=== PATIENT | female | born 1955 | race Caucasian/White ===

== ENCOUNTER → 2016-08-09 | Outpatient (CLI) | payer BC ==
--- NOTE | 2016-08-09 14:07 | MAM ---
EXAM DESCRIPTION: MAMMO BREAST SCREENING BILATERAL CAD, images were reviewed with CAD technology, R2 computer-aided detection. CLINICAL HISTORY: [facility]. COMPARISON: 2013. FINDINGS: Routine views are obtained. Scattered glandular parenchymal pattern remains stable. No dominant mass, architectural distortion or clustered microcalcification.. IMPRESSION: Benign exam. BIRAD CATEGORY: 2 BENIGN RECOMMENDATIONS: FOLLOW-UP: Routine screening mammogram in one year. According to the [employer], yearly mammograms are recommended starting at age 40 and continuing as long as a woman is in good health. Any breast change noted on a breast self-exam should be reported promptly to the patient's healthcare provider. Breast MRI is recommended for women with an approximately 20-25% or greater lifetime risk of breast cancer, including women with a strong family history of breast or ovarian cancer and women who have been treated for Hodgkin's disease. Electronically signed by: Sofya Briceño 08/09/2016 14:06
== END ==
LOC: MAMMO 12:40
PROVIDERS: ATTEND Nurse Practitioner Acute Care
DX: Z12.31 Encounter for screening mammogram for malignant neoplasm of breast (principal)

== ENCOUNTER → 2017-08-10 | Outpatient (CLI) | payer BC, OTHER ==
--- NOTE | 2017-08-11 10:12 | MAM ---
EXAM DESCRIPTION: 3D Screening BILATERAL : Digital Mammography. CLINICAL HISTORY: 62 years Female SCREENING . No complaints. No family history of breast cancer. Postmenopausal. Currently on HRT. COMPARISON: 2-D digital screening bilateral studies 08/09/2016 and 08/06/2015. Report from prior examination also reviewed. TECHNIQUE: Bilateral CC and MLO projection full-field images, 3-D tomosynthesis digital mammographic technique. Also bilateral synthesized CC/ MLO full-field images. CAD not utilized. FINDINGS: The breast parenchymal density pattern is: Scattered areas of fibroglandular density. No skin thickening or nipple retraction small solitary microcalcifications bilaterally. No focal, stellate mass or density, focal asymmetry , and no suspicious microcalcifications bilaterally. Stable mammograms compared to prior study, taking into account differences in mammographic technique IMPRESSION: BI-RADS CATEGORY: 2 - BENIGN FINDINGS. FOLLOW UP: Routine digital bilateral screening, one year interval from July 2017. Written communication explaining the IMPRESSION and follow-up, will be mailed to the patient and referring health care provider. According to the [employer], yearly mammograms are recommended starting at age 40 and continuing as long as a woman is in good health. Any breast change noted on a breast self-exam should be reported promptly to the patient's healthcare provider. Breast MRI is recommended for women with an approximately 20-25% or greater lifetime risk of breast cancer, including women with a strong family history of breast or ovarian cancer and women who have been treated for Hodgkin's disease. A negative mammographic report should not delay tissue diagnosis in patients with significant clinical history or physical findings. Extremely dense breast tissue limits the sensitivity of digital mammography. Electronically signed by: Neal Murphy MD 08/11/2017 10:11 AM [facility]
== END | disposition home or self-care (01) ==
LOC: MAMMO 12:50
PROVIDERS: ATTEND Nurse Practitioner Acute Care
DX: Z12.31 Encounter for screening mammogram for malignant neoplasm of breast (principal)

== ENCOUNTER → 2017-11-22 | Outpatient (CLI) | payer OTHER ==
--- NOTE | 2017-11-23 11:07 | US ---
EXAM DESCRIPTION: Pelvis Transvaginal CLINICAL HISTORY: 62 years, Female, POST MENOPAUSAL BLEEDING COMPARISON: None. FINDINGS: Transvaginal and transabdominal pelvic ultrasound. The uterus measures 9.8 x 4.2 x 3 cm. Uterus appears retroflexed. Endometrium measures 8.3 mm in maximal thickness, best visualized transabdominally. A hypoechoic area in the posterior upper body and fundus of the uterus is measured 2.7 x 3.2 x 1.6 cm. Another slight bulge of the anterior right lateral fundal region may be a fibroid 1.8 x 1.9 x 1.3 cm. A larger mass along the posterior lower uterine segment and cervical region is thought to be an exophytic subserosal fibroid 3.9 x 4.8 x 4.2 cm. Right ovary measures 2.1 x 2 x 1 cm. Left ovary is not visualized transvaginally. Transabdominal images show a hypoechoic ovoid structure labeled left ovary which measures 2.1 x 1 x 2.1 cm. No internal follicles to confirm that this is actually an ovary. There is some color flow in the area. There is no adnexal mass or free fluid. IMPRESSION: Fibroid uterus. Normal size of the ovaries for age. Electronically signed by: Sergei Burger MD 11/23/2017 11:06 AM CDT
== END ==
LOC: US 13:40
PROVIDERS: ATTEND Obstetrics & Gynecology
DX: N95.0 Postmenopausal bleeding (principal)

== ENCOUNTER → 2019-05-17 | Outpatient (CLI) | payer OTHER ==
--- NOTE | 2019-05-20 17:32 | MAM ---
EXAM DESCRIPTION: 3D Screening BILATERAL : Digital Mammography. CLINICAL HISTORY: 63 years Female SCREENING . No complaints. No personal history of breast cancer. Remote family history of breast cancer. Menarche age 11. Childbirth. Postmenopausal less than 5 years. HRT less than 5 years ago. Lifetime risk of developing breast cancer (Tyrer-Cuzick model)(%): 5.8. COMPARISON: Bilateral screening digital breast tomosynthesis 10 August 2017. TECHNIQUE: Bilateral CC and MLO projection full-field images, digital tomosynthesis mammographic technique. Bilateral digital 2-D full-field MLO images. CAD not available for tomosynthesis or 2-D images. FINDINGS: The breast parenchymal density pattern is: Scattered areas of fibroglandular density. No skin thickening or nipple retraction. Bilateral axillary lymph nodes. Bilateral solitary microcalcifications. Bilateral upper outer quadrant focal asymmetry. Large coarse calcification anterior right breast stable.. No new focal, stellate mass or density, focal asymmetry , and no suspicious microcalcifications bilaterally. Stable mammograms compared to prior study. IMPRESSION: Benign exam. BIRAD CATEGORY: 2 BENIGN FINDINGS. RECOMMENDATIONS: FOLLOW UP: Routine digital bilateral mammographic screening, one year interval from April 2019. Written communication explaining the IMPRESSION and follow-up, will be mailed to the patient and referring health care provider. According to the [employer], yearly mammograms are recommended starting at age 40 and continuing as long as a woman is in good health. Any breast change noted on a breast self-exam should be reported promptly to the patient's healthcare provider. Breast MRI is recommended for women with an approximately 20-25% or greater lifetime risk of breast cancer, including women with a strong family history of breast or ovarian cancer and women who have been treated for Hodgkin's disease. A negative mammographic report should not delay tissue diagnosis in patients with significant clinical history or physical findings. Extremely dense breast tissue limits the sensitivity of digital mammography. Electronically signed by: Neal Murphy MD 05/20/2019 5:30 PM CDT
== END ==
LOC: MAMMO 08:03
PROVIDERS: ATTEND Family Medicine
DX: Z12.31 Encounter for screening mammogram for malignant neoplasm of breast (principal)

== ENCOUNTER 2020-04-22 15:27 | Observation (INO) | payer MEDICARE, OTHER ==
[~2020-04-22 15:27] MED LIST: DEXAMETHASONE INJ 10 MG/ML VIAL ONE; LIDOCAINE 1% 10 ML VIAL INJ ONE; MAGNESIUM SULFATE INJ 1 GM/2 ML VIAL ONE; PROPOFOL 200 MG/20 ML VIAL IV ONE; ePHEDrine SULF 50 MG/ML ONE
--- NOTE | 2020-04-22 15:28 | HP ---
SUPERVISING PHYSICIAN: Xander Arroyo M.D. CHIEF COMPLAINT: Abdominal pain. HISTORY OF PRESENT ILLNESS: Ms. Quinteros is a 64 year-old female patient with no significant past medical history. She does have a history of chronic abdominal pain since mid January of this year. She first noted she was having some abnormal stools and felt bloated all the time. On March 23, she actually went to the Emergency Department in [place] and had a CT scan. Nothing was actually done. She was sent on to go see a GI specialist in [place]. She saw Dr. Back at the [facility] by teleconference this past . He basically scheduled her just for a colonoscopy. He told her to eat small boluses of food but never really gave her a diagnosis. She notes that she continues to have abdominal pain. At times, it is up to a 10 on the pain scale of 0 to 10 with a lot of belching. Yesterday she ate a banana and actually had some emesis associated with this with associated epigastric pain that she notes radiates to her back and across her upper abdominal region of both right upper and left quadrants. she was in the Emergency Department in [place] due to the symptoms and seen at [facility]. She was given pain medications and sent home, and told to followup with her GI specialist for colonoscopy in May. Yesterday she called Dr. Pizarro noting that her pain was severe. She was then admitted to the [facility]. A CT was done. Based off the CT findings, Dr. Farooq was consulted this morning and saw the patient. He noted that the patient was actually having issues secondary to a small bowel obstruction and requested the patient be transferred and admitted to the hospital here for a planned surgical procedure for small bowel obstruction in the morning. She was admitted directly to the hospital at Dr. Farooq's request. At time of admission, the patient was having some abdomen pains but was otherwise stable. PAST MEDICAL HISTORY: No significant medical history listed. PAST SURGICAL HISTORY: 1. Two sections, one in 1978 and one in 1980. PRESCRIPTION MEDICATIONS: [id number] medications - none listed. ALLERGIES: NO KNOWN DRUG ALLERGIES. FAMILY HISTORY: Mother at age 88 from advanced age. Father at age 89 due to advanced age. She has 1 brother who is 69 who has issues with cardiovascular disease. She has another brother who is healthy. She has a younger sister who is healthy, an older sister who is secondary to an MVA. SOCIAL HISTORY: She denies any alcohol, tobacco or illicit drug use. She works in [employer] with her at [employer]. She currently resides in [place], [place]. REVIEW OF SYSTEMS: CONSTITUTIONAL: Denies any fevers or chills. Reports some general malaise but no unintentional weight loss. HEENT: Denies any headaches, vision changes, sore throat or nasal congestion. RESPIRATORY: Denies any coughing, wheezing or shortness of breath. CARDIOVASCULAR: Denies any chest pains, palpitations or syncopal episodes. GASTROINTESTINAL: As noted in History of Present Illness, ongoing right upper quadrant and epigastric pain with associated emesis. GENITOURINARY: Denies any dysuria, hematuria, polyuria. MUSCULOSKELETAL: Denies any joint swelling or arthralgias. NEUROLOGIC: Denies any ataxia, seizures, migraines, vision changes, syncopal episodes, paresthesias or other focal deficits. SKIN: Denies any lesions, rashes, moles or unexplained changes. HEMATOLOGIC: Denies unexplained bleeding, bruising or transfusion reactions. PHYSICAL EXAMINATION: VITAL SIGNS: Temperature 98.7, pulse 18, respirations 98, blood pressure was pending. Admission weight was 73.5 kg. GENERAL: The patient does not look to be in any distress, although she does look a little uncomfortable and is not feeling well. She is alert. HEENT: Tympanic membranes clear bilaterally. Oropharynx is pink, moist without any lesions. NECK: Supple, nontender with full range of motion. No jugular venous distention noted. CHEST: Lungs are clear to auscultation bilaterally without any rhonchi, wheezes or rales. HEART: Regular rate and rhythm without any appreciable murmurs, gallops, or rubs. ABDOMEN: Soft with noted tenderness on palpation to the epigastric and both right upper and left quadrants. No rebound tenderness. No peritoneal signs. Bowel sounds are hypoactive. BACK: Without any CVA or vertebral tenderness. RECTAL: Exam was deferred. EXTREMITIES: Without any clubbing, cyanosis or edema. NEUROLOGIC: She is alert and oriented times three. Cranial nerves II-XII are grossly intact. Facial features are symmetrical. Extraocular movements are within normal limits. There is no nystagmus noted. SKIN: Warm, pink and dry. LABORATORY: White count 4,000, hemoglobin 12.8, hematocrit 30.0, platelet count 220,000. Differential did show a left shift. Coagulation studies showed normal PT and PTT. Chemistries showed normal electrolytes with a BUN of 9, creatinine 0.64, glucose 77, lactic acid 1.1, calcium normal at 8.4. Liver functions were all within normal limits. Amylase and lipase were both normal. Troponin less than 0.02. Urinalysis did show a trace of lysed blood, small amount of bilirubin, trace leukocyte esterase. Microscopic revealed 3 to 5 RBCs, 20 to 30 WBCs, 3 to 5 epithelials with 2+ bacteria. MICROBIOLOGY: Urine culture is pending. RADIOLOGY: Two view chest x-ray per radiology interpretation showed no acute findings. Imaging studies included a CT scan done prior to admission at [facility] per radiology interpretation of the exam on 04/21/20 shows findings suggestive of early small bowel obstruction with likely transition point in the right lower quadrant. There is note of small amount of free fluid but no free air or abscess. 12-lead EKG showed sinus bradycardia with no ST or T wave changes.noted. No comparisons available at time of admission. ASSESSMENT: 1. Small bowel obstruction as noted on CT scan with a transition point in the right lower quadrant. 2. Abdominal pain secondary to #1. 3. Lower urinary tract infection with cultures pending. PLAN: Ms. Quinteros is going to be admitted at the request of Dr. Farooq in anticipation of a surgical procedure in the morning to help resolve the small bowel obstruction. Dr. Farooq's consultation is pending. Will hold off on Lovenox tonight awaiting procedure in the morning. She will be NPO overnight. She will be on IV fluids D5 half normal saline with 20 of potassium at 125. She will be on IV pain management with morphine as needed, Zofran for any nausea or vomiting. Pending culture results start on Rocephin. I anticipate her length of stay to be 2 to 3 days pending surgery tomorrow. Until she can transition to outpatient management will continue to monitor and treat as needed. #[id number] [facility]
[2020-04-22] MEDS ORDERED: SODIUM CHLORIDE 0.9% (FLUSH) 10 ML SYG IV PRN (15:34)
[2020-04-22] MEDS ORDERED: IV SET AND CAP CHANGE INJ INJ SCH (16:00)
--- NOTE | 2020-04-22 16:14 | RAD ---
EXAM: XR Chest, 2 Views CLINICAL HISTORY: abdominal pain/ preop SBO TECHNIQUE: Frontal and lateral views of the chest. COMPARISON: 01/02/2009 FINDINGS: Lungs: No consolidation. Normal pulmonary vascular pattern. Pleural space: No abnormality noted. No pneumothorax. Heart: No abnormality noted. No cardiomegaly. Mediastinum: No abnormality noted. Bones/joints: No abnormality noted. Upper abdomen: No free intraperitoneal air noted. IMPRESSION: No acute findings in the chest. Electronically signed by: Poornima Dick MD 04/22/2020 4:12 PM CDT
[2020-04-22] MEDS: PANTOPRAZOLE SODIUM IV 40 MG VIAL IV SCH (16:16)
[2020-04-22] MEDS: KCL 20MEQ/D5 1/2NS 1,000 ML IVS PRN (17:18)
[2020-04-22] MEDS ORDERED: SODIUM CHL 0.9% 50ML MIN-BAG+ 50 ML IVPB ONE (19:28)
[2020-04-22] MEDS ORDERED: cefTRIAXone SODIUM 1 GM VIAL ONE (19:28)
[2020-04-22] MEDS: cefTRIAXone SODIUM 1 GM in SODIUM CHL 0.9% 50ML MIN-BAG+ 50 ML IVPB SCH (19:32)
[2020-04-23] MEDS: KCL 20MEQ/D5 1/2NS 1,000 ML IVS PRN ×3 (01:38→18:05)
[2020-04-23] MEDS ORDERED: SODIUM CHL 0.9% 100ML MINI-BAG 100 ML IVPB ONE (07:53)
[2020-04-23] MEDS ORDERED: SODIUM CHLORIDE 0.9% 1000ML 1,000 ML ONE (07:58)
[2020-04-23] MEDS ORDERED: HYDROmorphone HCL INJ 2 MG/ML VIAL ONE (08:09)
[2020-04-23] MEDS ORDERED: SUGAMMADEX SODIUM 200 MG/2 ML VIAL IV ONE (08:09)
[2020-04-23] MEDS ORDERED: MIDAZOLAM INJ 2 MG/2 ML VIAL ONE (08:09)
[2020-04-23] MEDS ORDERED: KETAMINE HCL 100 MG/ML VIAL ONE (08:09)
[2020-04-23] MEDS ORDERED: ROCURONIUM BROMIDE 10 MG/ML VIAL ONE (08:10)
[2020-04-23] MEDS ORDERED: FAMOTIDINE INJ 10 MG/ML VIAL IV ONE (08:10)
[2020-04-23] MEDS ORDERED: BUPIVACAINE 0.5% W/EPI 30 ML VIAL INJ ONE ×2 (08:49→09:10)
[2020-04-23] MEDS ORDERED: ELECTROLYTE-A 1,000 ML IVS ONE (08:51)
--- NOTE | 2020-04-23 10:25 | OP ---
DATE OF PROCEDURE: 04/23/20 PREOPERATIVE DIAGNOSIS: 1. Small bowel obstruction. POSTOPERATIVE DIAGNOSIS: 1. No evidence of small bowel obstruction. PROCEDURE: 1. Exploratory laparoscopy with adhesiolysis. SURGEON: Fito Farooq MD CUSHION FILLER: Josep Ayala MD ANESTHESIA: General and local. FINDINGS: The transition point was still apparent in the proximal ileum, however, no obstructing lesion or adhesions were seen. There were adhesions of the omentum to the anterior abdominal wall and the fundus of the uterus. This did not appear to be involved. There was no evidence of internal hernias. The gallbladder, however, showed a lot of scarring consistent with probable chronic cholecystitis and could be a cause for some of her symptoms. COMPLICATIONS: None. ESTIMATED BLOOD LOSS: Minimal. CONDITION: Stable. PLAN: Admit. INDICATION: This is a 64-year-old woman who had been complaining of chronic intermittent abdominal pain, postprandial with nausea for at least two months. It is getting very progressive. She was scheduled to see GI and a CT scan a few weeks ago showed possible enteritis. However, she had increased symptoms two days ago and was admitted. Additional CT scan showed evidence of a transition point and a small bowel obstruction. I saw her in [place] and viewed the CT scan myself and agreed with those findings. There was also some fluid in the pelvis. She was brought here to [place] for surgery. PROCEDURE: General anesthesia was induced. She was prepped and draped in sterile fashion. 0.5% Marcaine with epinephrine was used at all incision sites. While maintaining upward traction, a lito was made near the base of the umbilicus. The Veress needle was introduced. There was free flow of fluid into the peritoneal cavity which was insufflated to an appropriate level with CO2 gas. The 5 mm trocar was placed followed by the camera. There was no evidence of bleeding or bowel injury. The patient was positioned. Two left lower quadrant ports were placed. We noticed the dilated proximal small bowel upon entering and went straight to these anterior adhesions of the omentum which were from the mid abdominal wall down to the fundus of the uterus. These were taken down and only mild oozing was controlled. There was no evidence of anterior wall hernia. The uterus was stuck to the anterior wall. The right ovary was stuck to the anterior wall, but no evidence of complications there. We then found the terminal ileum and ran the bowel retrograde. We found a transition point and examined it. There were no obvious lesions at this time, no hard evidence of an adhesive band that had been released. We continued to examine the small bowel all the way up until almost the ligament of Treitz and saw no lesions. We examined the omentum and there were no lesions. We went back down to that transition point and indeed there was some distal peristalsis, but at the transition, which we did take a photo of, there was no obvious obstructing lesion. We palpated it with the instrumentation and there was no evidence of intraluminal mass. We commented on gallbladder previously, so we looked at the gallbladder and indeed there were a lot of adhesions almost covering the entire anterior gallbladder wall. There was no obvious acute inflammation, but this could be an explanation for some of her symptoms. Otherwise, the liver, peritoneal surfaces, stomach and the colon that we easily saw were all normal. At this point, the abdomen was desufflated. The trocars were removed. The wounds were closed with Monocryl and dressing applied. She was awakened and taken to Recovery to be admitted. Reportedly, she has had an ultrasound recently and we will examine that. #[id number] cc: Dr. Neal GALVAN
[2020-04-23] MEDS: MORPHINE SULFATE INJ 10 MG/ML VIAL IV PRN ×3 (11:09→18:05)
--- NOTE | 2020-04-23 13:13 | PN ---
SUPERVISING PHYSICIAN: Horacio Arroyo MD DATE: 04/23/20 SUBJECTIVE: The patient is lying in bed. She is resting quietly. She has just returned from surgery where Dr. Fito Farooq did an exploratory laparoscopy with adhesiolysis. There were no intraoperative complications. Her is at the bedside. OBJECTIVE: VITAL SIGNS: Temperature 98.6, heart rate 61, blood pressure 99/64, respiratory rate 16, O2 saturation 97% on 2 liters nasal cannula. RESPIRATORY: Somewhat diminished at the bases with somewhat shallow respiration, but mostly clear to auscultation. CARDIAC: Regular rate and rhythm. NEUROLOGIC: She is lethargic. She opens her eyes and follows some simple commands. LABORATORY: Preliminary urine cultures show no growth after 24 hours. All other labs and films have been reviewed via the EMR. ASSESSMENT: 1. Small bowel obstruction as noted on CT scan with a transition point in the right lower quadrant. She was admitted for surgical intervention and is status post exploratory laparoscopy, postoperative day #0. 2. Abdominal pain secondary to #1. 3. Lower urinary tract infection with cultures pending. PLAN: We will continue present supportive care. I have re-started her on D5 half with 20 of K as previously ordered and we will continue with that until further orders by Dr. Farooq or until the patient starts eating. Operative issues will be per Dr. Farooq. We will need to address with him when he would like her Lovenox re-started. She will have Zofran for nausea and vomiting. She will continue Rocephin for urinary tract infection and we will monitor her cultures. We will continue to monitor the patient closely and follow as needed. #[id number] [facility]
[2020-04-23] MEDS: PANTOPRAZOLE SODIUM IV 40 MG VIAL IV SCH (15:54)
[2020-04-23] MEDS: cefTRIAXone SODIUM 1 GM in SODIUM CHL 0.9% 50ML MIN-BAG+ 50 ML IVPB SCH (19:12)
[2020-04-23] MEDS: ONDANSETRON INJ 4 MG/2 ML VIAL IV PRN (19:55)
[2020-04-23] MEDS ORDERED: PROMETHAZINE HCL INJ 12.5 MG in SODIUM CHLORIDE 0.9% 50ML 50 ML IVPB PRN (20:15)
[2020-04-23] MEDS ORDERED: SODIUM CHLORIDE 0.9% 50ML 50 ML ONE (20:17)
[2020-04-23] MEDS ORDERED: PROMETHAZINE HCL INJ 25 MG/ML VIAL ONE (20:17)
[2020-04-23] MEDS: KETOROLAC TROMETHAMINE INJ 30 MG/ML VIAL IV PRN (20:25)
[2020-04-24] MEDS: KETOROLAC TROMETHAMINE INJ 30 MG/ML VIAL IV PRN (05:51)
[2020-04-24] MEDS: ONDANSETRON INJ 4 MG/2 ML VIAL IV PRN (05:53)
[2020-04-24 16:30] VITALS: BP 112/64; TEMP 97.9; O2SAT 97
--- NOTE | 2020-04-26 12:12 | DS ---
SUPERVISING PHYSICIAN: Xander Arroyo M.D. DISCHARGE DIAGNOSIS: 1. Small bowel obstruction as noted on CT scan with a transition point in the right lower quadrant. She was admitted for surgical intervention and is status post exploratory laparoscopy, postoperative day #2. 2. Abdominal pain secondary to #1 that has been ongoing for about 3 months. 3. Urinary tract infection with cultures pending. HISTORY OF PRESENT ILLNESS: This is a 64 year-old female patient who has no significant medical history. She has a history of abdominal pain that has been going on for about 3 months. She first noted to have some abnormal stools with bloating at that time. She went to the Emergency Room in [place] on March 23. A CT scan was done and nothing was actually done. She was sent to a GI specialist in [place]. She saw Dr. Back at the [facility] by teleconference the past . He scheduled her for a colonoscopy but no other intervention. He told her to eat small boluses of food but never really gave her a diagnosis. She noted that she continued to have this abdominal pain and had difficulty eating. She also had some belching. She has had some emesis with the epigastric pain but that has been rare. The main area of discomfort is the right and left upper quadrants. She had been seen at [facility] in the Emergency Room in [place] on . She was given pain medications and sent home, and told her to followup with her GI specialist. She called Dr. Pizarro the day prior to admission and told them about the severity of her pain. She was admitted to the hospital in [place]. A CT was done and based on her findings, Dr. Farooq was consulted and he saw the patient in [place]. Initially thinking that this was a small bowel obstruction, he requested the patient be transferred and admitted here for planned surgical procedure for a small bowel obstruction on Monday. She was directly admitted to the hospital in stable condition. HOSPITAL COURSE: The patient went to surgery on Monday morning. She had an exploratory laparoscopy with adhesiolysis. There was no evidence of an small bowel obstruction. The gallbladder showed some scarring consistent with probable chronic cholecystitis that may be the cause of some of her symptoms. She had no intraoperative complications. Postoperatively, the patient was to have as HIDA scan which is scheduled for next Monday on 04/29/20 at 9:00 AM. She is to be NPO afterwards. She is tolerating a clear liquid diet and has had 1 meal of full liquids. Instructions were given at length for what she should eat. She will be discharged home today in stable condition. LABORATORY: Initial WBCs were 4,000 with followup of 8,000. The remainder of her CBCs are unremarkable. Electrolytes were basically within normal limits with the exception of calcium was slightly low at 8.3. Amylase was 22 on admission and 21 on the day of discharge. Lipase was stable at 31. She was positive for a urinary tract infection. Urinalysis showed a trace of urine blood, small amount of urine bilirubin and trace amount of urine leukocyte esterase, 3 to 5 urine RBCs, 20 to 30 urine WBCs and 2+ urine bacteria with moderate mucous. Urine culture is still pending. RADIOLOGY: CT is unavailable at this time. Chest x-ray shows no acute findings in the chest. DISCHARGE PLAN: The patient will be discharged home in stable condition. She is to continue her diet as instructed. All of her questions were answered. She is to increase her activity as tolerated. She is to followup with Dr. Farooq as instructed. She is to be scheduled for a HIDA scan as an outpatient on 04/29/20 at 9:00 AM. She is also to be NPO at midnight. In addition to her routine medications, she has also been sent home with 7 days of Cefdinir, some Promethazine, Tramadol and some Zofran. She is to return to the hospital or followup with Dr. Farooq if any problems or complications. Iona Sinclair was consulted and there are no conflicts on her narcotics profile. DISCHARGE MEDICATIONS: 1. Cefdinir. 2. Promethazine. 3. Zofran. 4. Tramadol. #[id number] [facility]
== END 2020-04-24 14:45 | disposition home or self-care (01) ==
LOC: INTOOBSV 15:27 → MS 15:27
PROVIDERS: ADMIT Nurse Practitioner Family; ATTEND Nurse Practitioner Acute Care
DX: K56.609 Unspecified intestinal obstruction, unspecified as to partial versus complete obstruction (principal); K66.0 Peritoneal adhesions (postprocedural) (postinfection); N39.0 Urinary tract infection, site not specified; B96.89 Other specified bacterial agents as the cause of diseases classified elsewhere; R11.2 Nausea with vomiting, unspecified; K21.9 Gastro-esophageal reflux disease without esophagitis; R00.1 Bradycardia, unspecified; Z88.6 Allergy status to analgesic agent
CPT/HCPCS: 49329; 00840; 96366 ×2; 96367; 96365; 96375 ×2; 96376 ×2; J0694; J0696 ×2; J1170; J1885 ×2; J2270 ×3; J2405 ×3; J2550; J3490; J7030; A4216 ×3; J3475; J1100; J2250; J7050 ×3; 80053 ×2; 87086; 36415 ×7; 82150 ×2; 81001; 85025 ×2; 83690 ×2; 83735; 85730; 85610; 84484; 83605; 71046; 94760 ×5; 93005 ×2; G0378

== ENCOUNTER → 2020-04-29 | Outpatient (CLI) | payer MEDICARE, OTHER ==
--- NOTE | 2020-04-29 13:50 | NM ---
EXAM DESCRIPTION: Hepatobiliar w/CCK: Nuclear Medicine. CLINICAL HISTORY: ABDOMINAL PAIN. Bloating and belching. COMPARISON: None. TECHNIQUE: Patient was given 8.4 mCi of technetium 99 M mebrofenin (Choletec) radiopharmaceutical IV. Anterior gamma camera images were obtained of the right upper quadrant at 5 minute intervals for one hour. The patient was then given 1.4 mcg CCK IV infusion over 30-minute interval. Gallbladder ejection fraction was evaluated by measuring change in radioactivity in the gallbladder, over 30 min interval. FINDINGS: Almost immediate visualization of the entire liver after administration of radiopharmaceutical. No focal abnormal regions of photopenia or increased activity. Timely visualization of intrahepatic ducts, extrahepatic ducts, and the gallbladder. After infusion of CCK was began, patient experienced mild nausea. 14% of the gallbladder activity decreased after 10 minutes. A percent activity decreased after 20 minutes, and 93% activity decreased at 30 minutes. IMPRESSION: 1. No intrahepatic or extrahepatic biliary obstruction. No gross hepatic lesions. 2. Gallbladder ejection fraction is 93% which is well above abnormal range (less than or equal to 35%). Electronically signed by: Neal Murphy MD 04/29/2020 1:49 PM CDT
== END ==
LOC: NM 09:24
PROVIDERS: ATTEND Surgery
DX: K82.9 Disease of gallbladder, unspecified (principal)
CPT/HCPCS: 78227; A9537

== ENCOUNTER 2020-05-01 05:37 | Day surgery (SDC) | payer MEDICARE, OTHER ==
[2020-05-01] MEDS ORDERED: LACTATED RINGERS 1,000 ML ONE (06:33)
[2020-05-01] MEDS ORDERED: PROPOFOL 200 MG/20 ML VIAL IV ONE (07:00)
[2020-05-01] MEDS ORDERED: LIDOCAINE 1% 10 ML VIAL INJ ONE (07:00)
[2020-05-01] MEDS ORDERED: fentaNYL CITRATE INJ 50 MCG/ML 2 ML AMP ONE (10:21)
[2020-05-01 11:24] VITALS: BP 81/43; TEMP 97.4; O2SAT 94
--- NOTE | 2020-05-01 11:56 | OP ---
DATE OF PROCEDURE: 05/01/20 PREOPERATIVE DIAGNOSIS: 1. Epigastric pain. 2. Chronic belching. 3. History of possible enteritis. POSTOPERATIVE DIAGNOSIS: 1. Epigastric pain. 2. Chronic belching. 3. History of possible enteritis. PROCEDURE: 1. Complete colonoscopy. 2. EGD with biopsy. SURGEON: Fito Farooq MD ANESTHESIA: General. FINDINGS: On the colonoscopy, all mucosal surfaces were normal. No polyps were seen. On endoscopy, some slight erythema in the proximal stomach as well as the antrum. The duodenum and pylorus were normal. No evidence of hiatal hernia. The esophagus appeared normal. COMPLICATIONS: None. SPECIMEN: Gastric fundus and antrum. PLAN: Discharge. INDICATION: This is a 64-year-old woman with at least 2 months now of increasing abdominal pain, postprandial as well as belching, some nausea and vomiting. She has been evaluated with a CT. Previous CT showed evidence of a transition point suspicious for bowel obstruction. Laparoscopy was performed and there was no mechanical obstruction, no intraabdominal adhesions. Her pain is primarily postprandial with almost any meal yet she belches frequently. Although the severity has increased in the last 2 months, slighter symptoms go back for a long period of time. Her ultrasound and HIDA scan have both been normal. We are here to examine with endoscopy. PROCEDURE: She was brought to the Operating Suite in lateral position. General anesthesia was induced. Bite block was in place. The endoscope was passed without difficulty into the stomach and into the third portion of the duodenum. Upon withdrawal, the duodenal surfaces were normal. The antrum appeared slightly reddened, but no ulcers. Biopsies were taken also for H. pylori. The proximal stomach also showed a couple of reddened areas. These were biopsied. Retroflexion revealed no significant hiatal hernia. There was very slight next to the scope, but no ulcers or other abnormalities. Upon withdrawal, the mucosal surfaces of the esophagus appeared normal. On colonoscopy, she was repositioned laterally. Digital rectal exam was normal. The colonoscope was then passed into the rectum and on into the cecum without difficulty as identified by the appendiceal orifice. We did not cannulate the terminal ileum. Upon withdrawal, all mucosal surfaces appeared normal and there were no polyps seen in the colon. The patient tolerated the procedure and was taken to Recovery to be discharged. We will await the biopsy results. We are still considering the gallbladder as possible etiology. On laparoscopy, there were significant scars of the omentum around the gallbladder. #[id number] cc: Neal Pizarro MD [facility]
== END 2020-05-01 12:00 | disposition home or self-care (01) ==
LOC: AMB 05:37
PROVIDERS: ATTEND Surgery
DX: R10.13 Epigastric pain (principal); K31.89 Other diseases of stomach and duodenum; R14.2 Eructation; Z88.5 Allergy status to narcotic agent; Z79.899 Other long term (current) drug therapy
CPT/HCPCS: 00813; 43239; 45378; 88305; 88342; J3010; J7120